=== PATIENT | male | born 1980 | race Caucasian/White ===

== ENCOUNTER 2019-11-06 17:02 | Emergency (ER) | payer OTHER, SELFPAY ==
[2019-11-06 17:07] VITALS: BP 125/82; PULSE 75; RESP 16; TEMP 36.6; O2SAT 98
--- NOTE | 2019-11-06 17:45 | ED.GENADULT ---
HPI - General Adult General Chief complaint: Upper Respiratory Infection Stated complaint: COUGH Time Seen by Provider: 11/06/19 17:45 Source: patient Mode of arrival: ambulatory Limitations: no limitations History of Present Illness HPI narrative: 39-year-old male patient presents to the [facility] with complaints of a cough for the past 3 weeks. Patient states that he went to [facility] on 17 October and at that time he had cold symptoms as well as a cough that lasted for a week they told him it was viral and that it can last a little while and just recommended [id number] symptomatic relief. Patient states he has tried Ricola, Delson for his symptoms and continues to have coughing. Patient states most of his other symptoms have resolved and denies any fevers. Patient states he does have a little bit of shortness of breath. Patient states he has been coughing so hard that he has actually busted blood vessels in his eye and has fainted a couple of times because cannot catch his breath. Related Data Home Medications Medication Instructions Recorded Confirmed cetirizine [Zyrtec] 10 mg PO DAILY 11/06/19 11/06/19 omeprazole 10 mg PO DAILY 11/06/19 11/06/19 Allergies Allergy/AdvReac Type Severity Reaction Status Date / Time NKDA Allergy Unknown Uncoded 02/18/03 15:24 PEACHES Allergy Unknown Uncoded 02/18/03 15:24 Review of Systems Review of Systems: Narrative: CONSTITUTIONAL: Denies fever, chills, or sweats. EYES: Denies visual changes, redness, or discharge. ENT: Denies rhinorrhea, congestion, sore throat, or otalgia. CARDIOVASCULAR: Denies chest pain, palpitations, or edema. RESPIRATORY: Positive cough with dyspnea. GASTROINTESTINAL: Denies abdominal pain, nausea, vomiting, or diarrhea. GENITOURINARY: Denies dysuria or hematuria. SKIN: Denies rash or itching. MUSCULOSKELETAL: Denies back pain, joint pain, or myalgia. NEUROLOGIC: Denies headache, numbness, or weakness. PSYCHIATRIC: Denies anxiety or depression. PMFSH Comments At the time of my signature I agree with nursing past medical history, surgical, social, and family history. There is no relevant family history pertinent to the presenting complaint. Exam Narrative: Exam Narrative: GENERAL: Well-appearing, well-nourished, and in no acute distress. HEAD: Normocephalic, atraumatic. EYES: PERRLA and EOMI. ENT: Nares clear, no rhinorrhea or epistaxis. Mucous membranes moist. Bilateral TMs are clear with no erythema or foreign bodies in the canal. Posterior pharynx no erythema, tonsillar margin, exudates or lesions present. NECK: Supple. No lymphadenopathy CHEST: Patient has slight wheezing noted to expiratory bilateral lower lobes. No respiratory distress. Patient is coughing during exam. Patient able talk in clear complete sentences. No tripoding noted at this time. HEART: Regular rate and rhythm. No murmur heard. Normal peripheral pulses. ABDOMEN: Soft, nontender, nondistended, normal active bowel sounds. EXTREMITIES: Normal range of motion. No edema. SKIN: Warm, dry, no rash. NEURO: No focal deficits. Alert and oriented x3. Course Reevaluation(s) Reevaluation #1: Reevaluated patient after his DuoNeb was completed. Patient's lung sounds are clear now to bilateral upper lower lobes. Patient does have less coughing. Discussed with patient that I think this is most likely a bronchitis due to the virus that he has been fighting off. Discussed with patient I will discharge him home with an albuterol inhaler, oral steroid and I want him to continue taking his Zyrtec daily. Discussed with patient that if he continues to have worsening cough, chest pain, shortness of breath or he continues to pass out with coughing and he needs to go the ER for further testing. Patient verbalized understanding denies any other questions or concerns at this time. Date: 11/06/19 Time: 18:36 Vital Signs Vital signs: Vital Signs Temperature 36.6 C 11/06/19 17:07 Pulse
[2019-11-06] MEDS: ALBUTEROL SULFATE NEB 2.5 MG/3 ML INH INHALATION (17:56)
[2019-11-06] MEDS: IPRATROPIUM BR 0.02% INH SOLN 0.5 MG/2.5 ML VIAL INHALATION (17:57)
[2019-11-06 18:50] VITALS: PULSE 80; RESP 20; O2SAT 98
== END 2019-11-06 18:52 | disposition home or self-care (01) ==
PROVIDERS: Emergency Provider Nurse Practitioner Family; PCP Internal Medicine
DX: J20.9 Acute bronchitis, unspecified (principal)
CPT/HCPCS: 94640; 99213; G0463

== ENCOUNTER 2019-11-08 09:25 | Emergency (ER) | payer OTHER, SELFPAY ==
[2019-11-08 09:32] VITALS: BP 126/86; PULSE 78; RESP 16; TEMP 36.2; O2SAT 99
--- NOTE | 2019-11-08 10:00 | ED.GENADULT ---
HPI - General Adult General Chief complaint: Upper Respiratory Infection Stated complaint: cold flu History of Present Illness HPI narrative: This is a 39-year-old male that comes in complaining coughing so much that he passes out. Patient states he was here on the because he was passing out from coughing and lack of oxygen was diagnosed with bronchitis giving steroids and an inhaler with Zyrtec. Patient states the following day he did not pass out since then he is passed out at work and continues to pass out at home he passed out today and it was different and that is why he is coming today states that he still has some shortness of breath. Patient states as far as he knows he has not hit his head his but he hit his arm and shoulder because it hurts. Related Data Home Medications Medication Instructions Recorded Confirmed cetirizine [Zyrtec] 10 mg PO DAILY 11/06/19 11/06/19 omeprazole 10 mg PO DAILY 11/06/19 11/06/19 Allergies Allergy/AdvReac Type Severity Reaction Status Date / Time NKDA Allergy Unknown Uncoded 02/18/03 15:24 PEACHES Allergy Unknown Uncoded 02/18/03 15:24 Review of Systems Review of Systems: Narrative: CONSTITUTIONAL: Denies fever, chills, or sweats. syncope EYES: Denies visual changes, redness, or discharge. ENT: Denies rhinorrhea, congestion, sore throat, or otalgia. CARDIOVASCULAR:Denies chest pain, palpitations, or edema. RESPIRATORY: positive cough or dyspnea. GASTROINTESTINAL: Denies abdominal pain, nausea, vomiting, or diarrhea. GENITOURINARY: Denies dysuria or hematuria. SKIN:[Denies rash or itching. MUSCULOSKELETAL:Denies back pain, joint pain, or myalgia. NEUROLOGIC: Denies headache, numbness, or weakness. PSYCHIATRIC:Denies anxiety or depression Exam Narrative: Exam Narrative: GENERAL:Well-appearing, well-nourished, and in no acute distress.syncope HEAD:Normocephalic, atraumatic. EYES: PERRLA and EOMI. subconjunctival hemorrhage ENT: Nares clear, no rhinorrhea or epistaxis. Mucous membranes moist. NECK: Supple. CHEST: Clear to auscultation. No respiratory distress. HEART: Regular rate and rhythm. No murmur heard. Normal peripheral pulses. ABDOMEN: Soft, nontender, nondistended, normal active bowel sounds. EXTREMITIES: Normal range of motion. No edema. SKIN: Warm, dry, no rash. NEURO: No focal deficits. Alert and oriented x3. Course Vital Signs Vital signs: Vital Signs Temperature 97.1 F L 11/08/19 09:32 Pulse Rate 78 11/08/19 09:32 Respiratory Rate 16 11/08/19 09:32 Blood Pressure 126/86 11/08/19 09:32 Pulse Oximetry 99 11/08/19 09:32 Temperature 97.1 F L 11/08/19 09:32 Pulse Rate 78 11/08/19 09:32 Respiratory Rate 16 11/08/19 09:32 Blood Pressure 126/86 11/08/19 09:32 Pulse Oximetry 99 11/08/19 09:32 Medical Decision Making Vital Signs Vital Signs: Vital Signs Temperature 97.1 F L 11/08/19 09:32 Pulse Rate 78 11/08/19 09:32 Respiratory Rate 16 11/08/19 09:32 Blood Pressure 126/86 11/08/19 09:32 Pulse Oximetry 99 11/08/19 09:32 Temperature 97.1 F L 11/08/19 09:32 Pulse Rate 78 11/08/19 09:32 Respiratory Rate 16 11/08/19 09:32 Blood Pressure 126/86 11/08/19 09:32 Pulse Oximetry 99 11/08/19 09:32 Discharge Plan Discharge Clinical Impression: Upper respiratory infection, Syncope and collapse Patient Disposition: Acute Care Hospital Condition: Stable Prescriptions: No Action omeprazole 10 mg Capsule,Delayed Release(Dr/Ec) 10 mg PO DAILY RF: 0 Zyrtec 10 mg Capsule 10 mg PO DAILY RF: 0 prednisone 20 mg tablet 40 mg PO DAILY 5 Days Qty: 10 RF: 0 albuterol sulfate [Ventolin HFA] 90 mcg/actuation HFA aerosol inhaler 2 puff INHALATION .Q4 hours PRN (Reason: cough) Qty: 18 RF: 0 Follow-up/Referrals: Fermin,MD Oneal [Primary Care Provider] - Time of Disposition: 10:39 Discharge Date/Time: 11/08/19 10:39
--- NOTE | 2019-11-08 10:38 | PC.NURSE ---
1025- [employer] talking to Dr Nguyen at [facility].
== END 2019-11-08 10:39 | disposition short-term general hospital (02) ==
PROVIDERS: Emergency Provider Nurse Practitioner Family; PCP Internal Medicine
DX: J06.9 Acute upper respiratory infection, unspecified (principal); R55 Syncope and collapse
CPT/HCPCS: 99213; G0463

== ENCOUNTER 2019-11-08 11:25 | Emergency (ER) | payer OTHER, SELFPAY ==
--- NOTE | ~2019-11-08 | XR_ITS ---
EXAMINATION: XR chest 2V EXAM DATE: 11/08/2019 12:56 INDICATION: Cough for 3 weeks. TECHNIQUE: Frontal and lateral projections of the chest obtained and reviewed. Comparison is made to prior examination from 11/28/2004. FINDINGS: The lungs are clear. There are no pleural effusions. The cardiomediastinal silhouette is within normal limits. There is no pneumothorax suspected. The bones and soft tissues are unremarkab le. IMPRESSION: Normal chest x-ray exam. Reviewed, dictated and finalized at location B. IMPRESSION: Normal chest x-ray exam.
[2019-11-08 11:30] VITALS: BP 145/88; PULSE 72; RESP 18; TEMP 36.2; O2SAT 99
--- NOTE | 2019-11-08 11:35 | ECG_ITS ---
Measurements Intervals [place] Rate: 67 P: 25 MI: 179 QRS: -12 QRSD: 108 T: 8 QT: 386 QTc: 408 Interpretive Statements SINUS RHYTHM INCOMPLETE RIGHT BUNDLE BRANCH BLOCK VOLTAGE CRITERIA FOR LVH DELAYED PRECORDIAL R/S TRANSITION BORDERLINE T WAVE ABNORMALITY- INFERIOR LEADS BORDERLINE ECG Electronically Signed On 11-08-2019 11:49:19 CDT by Tyler Guaman D.O.
[2019-11-08 11:51] LABS: Basophils Percent Auto 0.5 % (0.2-1.2); Eosinophils Percent Auto 0.3 % (0-4.4); Hematocrit 49.6 % (42.0-52.0); Hemoglobin 16.5 g/dL (14.0-18.0); Immature Granulocyte Absolute 0.03 K/mm3 (0.00-0.031); Immature Granulocyte Percent A 0.4 % (0-0.5); Lymphocytes Absolute Auto 1.65 K/mm3 (0.9-3.2); Lymphocytes Percent Auto 22.4 % (18.3-44.2); Mean Corpuscular HGB Conc 33.3 g/dl (32-36); Mean Corpuscular Hemoglobin 28.3 pg (26-34); Mean Corpuscular Volume 84.9 fl (80-100); Mean Platelet Volume 10.7 fl (7.4-10.4); Monocytes Absolute Auto 0.2 K/mm3 (0.1-0.6); Monocytes Percent Auto 2.6 % (2.6-8.5); Neutrophils Absolute Auto 5.5 K/mm3 (1.3-6.7); Neutrophils Percent Auto 73.8 % (45.5-73.1); Platelet Count Result 255 k/mm3 (150-375); Red Blood Count 5.84 M/mm3 (4.6-6.20); Red Cell Distribution Width 12.5 % (11.5-14.5); White Blood Count 7.4 K/mm3 (4.5-10.0)
[2019-11-08 12:03] LABS: Blood Urea Nitrogen 11 mg/dL (9-20); Calcium 9.3 mg/dL (8.4-10.2); Carbon Dioxide 27 mmol/L (22-30); Chloride 104 mmol/L (98-107); Estimated CRCL calculation 130 ml/min; Estimated Glomerular Filt Rate > 60; Glucose 146 mg/dL (75-110); Sodium 141 mmol/L (137-145)
--- NOTE | 2019-11-08 12:19 | ED.SYNCOPE ---
HPI - Syncope General Chief Complaint: Syncope Stated Complaint: syncope Time Seen by Provider: 11/08/19 11:58 Source: patient Mode of arrival: ambulatory Limitations: no limitations History of Present Illness HPI narrative: A 39 y/o male pt presents to the ED, from a local urgent care, with c/o coughing followed by syncope x 5 days. Pt states he has been having coughing episodes and when he sits down during them he passes out. He notes feeling SOB and states that his coughing episodes are becoming more frequent. His last coughing episode followed by a syncopal episode occurred this morning at 700AM. He states that his Sx are worse in the morning and at night, but notes having a coughing and syncopal episode yesterday at work around 300PM. Pt reports pain upon inspiration x 1 week ago, that has now subsided, trouble inhaling and exhaling, and congestion that is chronic, but denies any injuries from syncopal episodes, pain or swelling in legs, rhinorrhea, fever, or N/V/D. He denies any recent travel. Pt reports taking Ricola when working, Zyrtec daily, and states he was recently prescribed Prednisone x 5 doses and Albuterol every 4 hours, with little relief of his Sx. He denies having any current SOB in the ED. complaint: loss of consciousness Onset (ago): day(s) (5) Prodromal symptoms: other (coughing episode) Injuries sustained associated with event: none Current symptoms: shortness of breath and other (cough, chronic congestion) Treatments prior to arrival: medication (Prednisone, Zyrtec, Ricola, Albuterol) Related Data Home Medications Medication Instructions Recorded Confirmed cetirizine [Zyrtec] 10 mg PO DAILY 11/06/19 11/06/19 omeprazole 10 mg PO DAILY 11/06/19 11/06/19 Allergies Allergy/AdvReac Type Severity Reaction Status Date / Time PEACHES AdvReac Unknown Unknown Uncoded 11/08/19 11:34 Review of Systems Review of Systems: All systems reviewed & are unremarkable except as noted in HPI and below Constitutional: Constitutional: Denies fever(s) ENT: Denies other (rhinorrhea) Cardiovascular: Cardiovascular: Denies leg edema and Denies other (leg pain) Respiratory: Respiratory: Reports chest congestion (chronic), Reports cough, Reports pain on inspiration (subsided) and Reports dyspnea Gastrointestinal: Gastrointestinal: Denies diarrhea, Denies nausea and Denies vomiting Neurologic: Reports syncope (after coughing episode) [facility] Past Medical History Medical History (Updated 11/08/19 @ 15:50 by Kunal Paris MD) History of gastroesophageal reflux (GERD) Surgical History Surgical History (Updated 11/08/19 @ 14:30 by Star SimentalActivIdentity) H/O hernia repair History of sinus surgery Social History Social History (Updated 11/08/19 @ 14:31 by Star SimentalActivIdentity) Smoking status: Never smoker Gender identity (if verbalized by the patient): Male Exam Narrative: Exam Narrative: GENERAL: Well-appearing, well-nourished, and in no acute distress. HEAD: Normocephalic, atraumatic. Eyes: Jomar, EOMI, subconjunctival hemorrhage right medial eye ENT: Mucous membranes moist. No pharyngeal erythema or tonsillar exudate, uvula midline and nonedematous. CHEST: Clear to auscultation. No respiratory distress. HEART: Regular rate and rhythm. Normal peripheral pulses. ABDOMEN: Soft, nontender, nondistended. EXTREMITIES: Normal range of motion. No edema. NEURO: Alert and oriented x3. Course Course Emergency Course: Suspect vasovagal syncope related to increased para pressure from frequent coughing and not breathing. Seems to occur mainly in the evenings and mornings when patient is laying down so it may be related to postnasal drip. Will prescribe Mucinex D to help prevent this. Vital Signs Vital signs: Vital Signs Temperature 97.2 F L 11/08/19 11:30 Pulse Rate 72 11/08/19 11:30 Respiratory Rate 18 11/08/19 11:30 Blood Pressure 145/88 H 11/08/19 11:30 Pulse Oximetry 99 11/08/19 11:3
[2019-11-08 12:30] VITALS: BP 139/87; PULSE 70
[2019-11-08 12:32] VITALS: BP 140/88; PULSE 73
[2019-11-08 12:34] VITALS: BP 133/93; PULSE 75
[2019-11-08 16:02] VITALS: BP 136/91; PULSE 107; RESP 16; O2SAT 94
== END 2019-11-08 16:02 | disposition home or self-care (01) ==
PROVIDERS: General Practice; Emergency Provider Emergency Medicine; PCP Internal Medicine
DX: R05 Cough (principal); R55 Syncope and collapse; K21.9 Gastro-esophageal reflux disease without esophagitis; I45.10 Unspecified right bundle-branch block; R94.31 Abnormal electrocardiogram [ECG] [EKG]
CPT/HCPCS: 36415; 71046; 80048; 85025; 93005; 99284

== ENCOUNTER → 2021-03-05 08:16 | Outpatient (CLI) | payer OTHER, SELFPAY ==
[2021-03-05 17:20] LABS: SARS-CoV-2 RNA PCR Positive
== END ==
PROVIDERS: PCP Physician Assistant; Visit Provider Physician Assistant
DX: U07.1 COVID-19 (principal)
CPT/HCPCS: C9803; U0003; U0005

== ENCOUNTER → 2021-09-04 10:58 | Outpatient (CLI) | payer OTHER, SELFPAY ==
[2021-09-05 16:24] LABS: SARS-CoV-2 RNA PCR Negative
== END ==
PROVIDERS: PCP Physician Assistant; Visit Provider Physician Assistant
DX: R68.89 Other general symptoms and signs (principal); Z20.822 Contact with and (suspected) exposure to COVID-19
CPT/HCPCS: C9803; U0003; U0005

== ENCOUNTER → 2021-12-21 11:44 | Outpatient (CLI) | payer OTHER, SELFPAY ==
--- NOTE | ~2021-12-21 | US_ITS ---
EXAMINATION: US right upper quadrant DATE: 12/21/2021 12:03 INDICATION: Elevated liver enzymes TECHNIQUE: Multiple grayscale and Doppler ultrasound images of the abdomen were obtained. COMPARISON: CT, 02/12/2018 FINDINGS: The head and body of the pancreas are normal. The pancreatic tail is obscured by bowel gas. The liver demonstrates increased echogenicity, heterogenous echotexture, and decreased through trans mission. No surface nodularity. Normal hepatopetal flow in the main portal vein. The gallbladder is n ormal with no abnormal wall thickening, pericholecystic fluid or stones. The normal common bile duct measures 5 mm. There was no sonographic Delgadillo sign. IMPRESSION: 1. Diffuse hepatic steatosis. Reviewed, dictated and finalized at location F.
== END ==
PROVIDERS: PCP Internal Medicine; Visit Provider Physician Assistant
DX: R74.01 Elevation of levels of liver transaminase levels (principal); K76.0 Fatty (change of) liver, not elsewhere classified
CPT/HCPCS: 76705

== ENCOUNTER 2022-01-27 07:36 | Outpatient (CLI) | payer OTHER, SELFPAY ==
--- NOTE | 2022-02-09 22:40 | WPDHOMESLEEP ---
Sleep Study - Home Unattended Date of Study: 01/27/22 Ordering Provider: Aminata Holder, PAPorsha Interpreting Provider: Antonieta Stanley MD [place] Sleep Study Type: Watch PAT Height: 1.78 m Weight: 106.594 kg Body Mass Index: 33.7 Neck Circumference (inches): 17 [place]: 10 Reason for Sleep Study New atrial fibrillation, constant snoring Sleep History Ole Patel is a 41-year-old man who was recently diagnosed with atrial fibrillation. He has excessive daytime sleepiness. He does not awaken from sleep feeling short of breath. On occasion he awakens with heartburn, belching or coughing. He constantly snores and it is frequently loud enough that others complain about it. He occasionally has trouble sleeping with a cold. He does not wake up gasping for breath at night. He occasionally has breathing problems at night observed by others. He occasionally sweats excessively at night. He rarely notices his heart pounding or beating irregularly at night. He frequently falls asleep during the day, rarely falls asleep involuntarily however he does not fall asleep while driving. He does not have loss of muscle tone with strong emotion. He rarely has daytime difficulties due to excessive sleepiness. He does not feel paralyzed on waking or falling asleep. He does not have vivid dreamlike scenes upon awakening or falling asleep. He does not feel afraid to go to sleep. He does not have nightmares. He rarely remembers his dreams. He occasionally has racing thoughts. He does not feel sad or depressed. He frequently has anxiety. He occasionally has muscular tension. He rarely notices parts of his body jerking. He does not kick at night. He does not have crawling or aching feelings in his legs. He does not have any kind of leg pain at night. He rarely has morning jaw pain. He does not grind his teeth during sleep. He rarely is bothered by pain during the day. He is not awakened by pain during the night. He occasionally wakes up feeling stiff in the morning with sore achy muscles. He rarely wakes up with pain in the neck and spine. He has fatigue and he takes antacids regularly. Normal bedtime is between 11:00 p.m. and 12 midnight taking 5-10 minutes to fall asleep, typically waking 1-2 times at night to use the bathroom. Occasionally he has difficulty returning to sleep. He wakes between 6 and 7:00 a.m.. His weekend schedule is the same. He estimates getting between 7 and 8 hours of sleep at night. He takes naps in the afternoon or evening. A short nap is not refreshing. Most of the time he feels good on waking. He feels better in the morning compared to other times of day. Habits: Never smoked tobacco. Caffeine 6-7 diet Pepsi's a day. No alcohol or recreational drugs. [facility] Past Medical History Medical History (Updated 02/09/22 @ 22:57 by Antonieta Stanley MD) Allergies Atrial fibrillation Fatty liver History of gastroesophageal reflux (GERD) Hyperlipidemia Surgical History Surgical History H/O hernia repair History of sinus surgery Family History Family History (Updated 02/09/22 @ 22:50 by Antonieta Stanley MD) Mother Breast cancer Cirrhosis Social History Social History Smoking status: Never smoker Gender identity (if verbalized by the patient): Male Medications Home Medications Medication Instructions Recorded Confirmed Type albuterol sulfate 90 mcg/actuation 2 puff inhalation .Q4 hours PRN 11/06/19 Rx aerosol inhaler (Ventolin HFA) cough #18 grams cetirizine 10 mg capsule (Zyrtec) 10 mg PO DAILY 11/06/19 11/06/19 History omeprazole 10 mg capsule,delayed 10 mg PO DAILY 11/06/19 11/06/19 History release prednisone 20 mg tablet 40 mg PO DAILY cough 5 days #10 11/06/19 Rx tabs pseudoephedrine-guaifenesin ER 60 1 tablet PO Q12H PRN cold symptoms 11/08/19 Rx mg-600 mg
[2022-02-09 23:05] VITALS: BMI 33.7
== END 2022-02-09 11:00 | disposition home or self-care (01) ==
LOC: ANHCSM 07:45
PROVIDERS: PCP Internal Medicine; Visit Provider Physician Assistant
DX: G47.33 Obstructive sleep apnea (adult) (pediatric) (principal)
CPT/HCPCS: 95800

== ENCOUNTER 2022-06-01 07:54 | Outpatient (CLI) | payer OTHER, SELFPAY ==
--- NOTE | 2022-06-26 12:59 | WPDSLEEPSTUD ---
Sleep Study Date of Study: 06/01/22 Ordering Provider: Aminata Holder, PORTIA Interpreting Physician: Antonieta Stanley MD Sleep Study Type: CPAP Titration Height: 1.78 m Weight: 108.862 kg Body Mass Index: 34.4 Neck Circumference (inches): 19.5 [place]: 10 Reason for Sleep Study * 01/27/2022 - Home Sleep Test with moderate obstructive sleep apnea, AHI 15.3, worse in supine REM AHI 42.3, desaturation to 79% He presents for a CPAP titration Sleep History Ole Patel? is a 42-year-old man who was diagnosed with atrial fibrillation before his February 08, 2022 home sleep test.? He has excessive daytime sleepiness.? He does not awaken from sleep feeling short of breath.? On occasion he awakens with heartburn, belching or coughing.? He constantly snores and it is frequently loud enough that others complain about it.? He occasionally has trouble sleeping with a cold.? He does not wake up gasping for breath at night.? He occasionally has breathing problems at night observed by others.? He occasionally sweats excessively at night.? He rarely notices his heart pounding or beating irregularly at night.? He frequently falls asleep during the day, rarely falls asleep involuntarily however he does not fall asleep while driving.? He does not have loss of muscle tone with strong emotion.? He rarely has daytime difficulties due to excessive sleepiness.? He does not feel paralyzed on waking or falling asleep.? He does not have vivid dreamlike scenes upon awakening or falling asleep.? He does not feel afraid to go to sleep.? He does not have nightmares.? He rarely remembers his dreams.? He occasionally has racing thoughts.? He does not feel sad or depressed.? He frequently has anxiety.? He occasionally has muscular tension.? He rarely notices parts of his body jerking.? He does not kick at night.? He does not have crawling or aching feelings in his legs.? He does not have any kind of leg pain at night.? He rarely has morning jaw pain.? He does not grind his teeth during sleep.? He rarely is bothered by pain during the day.? He is not awakened by pain during the night.? He occasionally wakes up feeling stiff in the morning with sore achy muscles.? He rarely wakes up with pain in the neck and spine.? He has fatigue and he takes antacids regularly. Normal bedtime is between 11:00 p.m. and 12 midnight taking 5-10 minutes to fall asleep, typically waking 1-2 times at night to use the bathroom.? Occasionally he has difficulty returning to sleep.? He wakes between 6 and 7:00 a.m..? His weekend schedule is the same.? He estimates getting between 7 and 8 hours of sleep at night.? He takes naps in the afternoon or evening.? A short nap is not refreshing.? Most of the time he feels good on waking.? He feels better in the morning compared to other times of day. Habits:? Never smoked tobacco.? Caffeine 6-7 diet Pepsi's a day.? No alcohol or recreational drugs. [facility] Past Medical History Medical History (Updated 06/26/22 @ 13:03 by Antonieta Stanley MD) Allergies Atrial fibrillation Fatty liver History of gastroesophageal reflux (GERD) Hyperlipidemia Obstructive sleep apnea Surgical History Surgical History H/O hernia repair History of sinus surgery Family History Family History (Updated 02/09/22 @ 22:50 by Antonieta Stanley MD) Mother Breast cancer Cirrhosis Social History Social History Smoking status: Never smoker Gender identity (if verbalized by the patient): Male Medications Home Medications Medication Instructions Recorded Confirmed Type albuterol sulfate 90 mcg/actuation 2 puff inhalation .Q4 hours PRN 11/06/19 Rx aerosol inhaler (Ventolin HFA) cough #18 grams cetirizine 10 mg capsule (Zyrtec) 10 mg PO DAILY 11/06/19 11/06/19 History omeprazole 10 mg capsule,delayed 10 mg PO DAILY 11/06/19 11/06/19 History release predniso
[2022-06-26 13:17] VITALS: BMI 34.4
== END 2022-06-02 06:11 | disposition home or self-care (01) ==
PROVIDERS: PCP Internal Medicine; Visit Provider Physician Assistant
DX: G47.33 Obstructive sleep apnea (adult) (pediatric) (principal); Z68.34 Body mass index [BMI] 34.0-34.9, adult
CPT/HCPCS: 95811

== ENCOUNTER 2022-09-02 09:13 | Outpatient (CLI) | payer OTHER, SELFPAY ==
--- NOTE | ~2022-09-02 | MM_ITS ---
EXAMINATION: MM diagnostic desmond LT w livan HISTORY: Subareolar lump of the left breast TECHNIQUE: Craniocaudal, mediolateral, and mediolateral oblique 3-D tomosynthesis images of the left breast were performed and synthetic 2-D images were generated. Mediolateral oblique 3-D tomosynthesis images of the right breast were obtained for comparison and synthetic 2-D images were generated. CAD analysis was submitted and interpreted. COMPARISON: None BREAST PARENCHYMAL COMPOSITION: The breasts are almost entirely fatty. FINDINGS: No suspicious mass, calcification, or architectural distortion are identified to suggest ma lignancy. No mammographic correlate is identified for the reported palpable abnormality of the left b reast. IMPRESSION: 1. No specific mammographic correlate is identified for the reported palpable abnormality of concern. Further evaluation at this time should be based on clinical assessment. Continued follow-up physical examination is recommended. BI-RADS Category 1: Negative Reviewed, dictated and finalized at location A. SMAN/OWNER IMPRESSION: 1. No specific mammographic correlate is identified for the reported palpable a bnormality of concern. Further evaluation at this time should be based on clini geronimo assessment. Continued follow-up physical examination is recommended. BI-RADS Category 1: Negative
== END 2022-09-02 09:14 | disposition home or self-care (01) ==
PROVIDERS: PCP Physician Assistant; Visit Provider Physician Assistant
DX: R92.8 Other abnormal and inconclusive findings on diagnostic imaging of breast (principal)
CPT/HCPCS: 77061; 77065; G0279

== ENCOUNTER 2023-12-13 12:00 | Outpatient (CLI) | payer OTHER, SELFPAY ==
--- NOTE | ~2023-12-13 | XR_ITS ---
EXAMINATION: XR chest 2V Exam Date/Time: 12/13/2023 12:05 CDT HISTORY: Screening procedure Comparison: 11/08/2019, report only. RESULT: Lines, tubes, and devices: None. Lungs and pleura: Clear. Cardiomediastinal silhouette: Unremarkable. Other: No acute osseous or upper abdominal finding. IMPRESSION: No acute cardiopulmonary process. Reviewed, dictated and finalized at location K.
== END 2023-12-13 12:01 ==
LOC: MICIMG 12:01
PROVIDERS: PCP Physician Assistant; Visit Provider Physician Assistant
DX: Z13.9 Encounter for screening, unspecified (principal)
CPT/HCPCS: 71046

== ENCOUNTER 2024-07-20 07:38 | Emergency (ER) | payer OTHER, SELFPAY ==
[2024-07-20 07:43] VITALS: BP 149/82; PULSE 89; RESP 16; TEMP 36.4; O2SAT 98
--- NOTE | 2024-07-20 07:59 | ED_ITS ---
HPI - Eye Problem General Chief complaint: Eye Problems Stated complaint: foreign body right eye Time Seen by Provider: 07/20/24 07:43 History of Present Illness HPI Narrative: Patient is a 44-year-old male who presents ER with foreign body sensation to the right eye. Use in the ER mulching leaves yesterday he started to have some irritation right eye. He took out his contacts to sleep. When he woke up this morning he is still having irritation in the eye. No flashers or floaters. He has foreign body sensation. No photophobia. No change in vision. He is wearing his glasses visual acuities are 20/30 in each eye. Related Data Home Medications Medication Instructions Recorded Confirmed cetirizine 10 mg capsule (Zyrtec) 10 mg PO DAILY 11/06/19 11/06/19 omeprazole 10 mg capsule,delayed 10 mg PO DAILY 11/06/19 11/06/19 release Allergies Allergy/AdvReac Type Severity Reaction Status Date / Time PEACHES AdvReac Unknown Unknown Uncoded 07/20/24 07:45 Review of Systems Eyes: Eyes: Denies change in vision and Denies photophobia Comments: FB sensation PMFSH Past Medical History Medical History (Updated 07/20/24 @ 08:01 by Kunal Paris MD) Allergies Atrial fibrillation Fatty liver History of gastroesophageal reflux (GERD) Hyperlipidemia Obstructive sleep apnea Surgical History Surgical History H/O hernia repair History of sinus surgery Family History Family History (Updated 02/09/22 @ 22:50 by Antonieta Stanley MD) Mother Breast cancer Cirrhosis Social History Social History Smoking status: Never smoker Gender identity (if verbalized by the patient): Male Exam Narrative: GENERAL: Well-appearing, well-nourished, and in no acute distress. HEAD: Normocephalic, atraumatic. EYES: PERRLA and EOMI. Right eye viewed with magnification as well as floor since standing. No corneal abrasion. Eyelid eversion performed and small f oreign body retrieved from the upper eyelid with cotton swab. NEURO: Alert and oriented x3. PSYCH: Normal mood and affect. Course Course Emergency Course: Foreign body retrieved. Discharge home. Return precautions given. Recommend not wearing contacts for 3 days. Vital Signs Vital signs: Vital Signs Temperature 97.6 F 07/20/24 07:43 Pulse Rate 89 07/20/24 07:43 Respiratory Rate 16 07/20/24 07:43 Blood Pressure 149/82 H 07/20/24 07:43 Pulse Oximetry 98 07/20/24 07:43 Oxygen Delivery Room Air 07/20/24 07:43 Temperature 97.6 F 07/20/24 07:43 Pulse Rate 89 07/20/24 07:43 Respiratory Rate 16 07/20/24 07:43 Blood Pressure 149/82 H 07/20/24 07:43 Pulse Oximetry 98 07/20/24 07:43 Oxygen Delivery Room Air 07/20/24 07:43 Discharge Plan Discharge Clinical Impression: Eye foreign body Patient Disposition: Home, Self-Care Condition: Stable Instructions: Eye Foreign Body (ED) Additional Instructions: You had some debris under your right eye lid. Do not wear your contacts for the next 3 days. Return to the ER if you have increased eye pain, new eye discharge, or you cannot see. Prescriptions: No Action omeprazole 10 mg Capsule,Delayed Release(Dr/Ec) 10 mg PO DAILY Zyrtec 10 mg Capsule 10 mg PO DAILY prednisone 20 mg tablet 40 mg PO DAILY 5 Days Qty: 10 0RF albuterol sulfate [Ventolin HFA] 90 mcg/actuation HFA aerosol inhaler 2 puff INHALATION .Q4 hours PRN (Reason: cough) Qty: 18 0RF pseudoephedrine-guaifenesin [Mucinex D] 60-600 mg tablet extended release 12 hr 1 tablet PO Q12H PRN (Reason: cold symptoms) Qty: 14 0RF Follow-up/Referrals: Glory,PORTIA Coates [Primary Care Provider] - 1 Week
== END 2024-07-20 08:18 | disposition home or self-care (01) ==
PROVIDERS: Emergency Provider Emergency Medicine; PCP Physician Assistant
DX: T15.11XA Foreign body in conjunctival sac, right eye, initial encounter (principal); I48.91 Unspecified atrial fibrillation; E78.5 Hyperlipidemia, unspecified; K21.9 Gastro-esophageal reflux disease without esophagitis; G47.33 Obstructive sleep apnea (adult) (pediatric); W44.8XXA Other foreign body entering into or through a natural orifice, initial encounter
CPT/HCPCS: 65205; 99283; A9270

== ENCOUNTER 2025-01-09 00:17 | Day surgery (SDC) | payer OTHER, SELFPAY ==
[2024-12-31 15:03] VITALS: BMI 34.4
--- OUTSIDE RECORDS SUMMARY | 2025-01-09 00:20 | XMS_ITS | Data Portability ---
Author Organization [place] - [facility], Main Office Address [address] [place] [address] Assessment Encounter Date Assessment Date Assessment LastModified by Organization Details LastModified Time 06/27/2023 06/27/2023 cyst midback, symptomatic. Options discussed with patient. We will schedule for excision under sedation. Risks and benefits were discussed risks include bleeding infection numbness Not available 06/27/2023 11:45:23 07/18/2023 07/18/2023 status post excision cyst on back. Doing well. We will remove sutures. Follow-up p.r.n. Not available 07/27/2023 13:32:09 Plan of Treatment Reminders Order Date Submit Date Provider Last Modified By Organization Details Last Modified Time Details Appointments None recorded. Lab PSA, serum or plasma 2022 024 [email or web address] Not available 4 10:18:37 HbA1c (hemoglobin A1c), blood 2022 024 [email or web address] Not available 4 10:18:37 CBC w/ auto diff 2022 024 [email or web address] Not available 4 10:18:37 TSH + free T4, serum 2022 024 [email or web address] Not available 4 10:18:37 CMP, serum or plasma 2022 024 [email or web address] Not available 4 10:18:37 lipid panel, serum 2022 024 [email or web address] Not available 4 10:18:37 CBC w/ auto diff 2022 023 FROY [facility], [address] [facility] [address], [place], [address], 3 10:26:15 HbA1c (hemoglobin A1c), blood 2022 023 [email or web address] [facility], [address] [facility] [address], [place], [address], 3 10:48:18 lipid panel, serum 2022 023 [email or web address] [facility], [address] [facility] [address], [place], [address], 3 10:48:10 CMP, serum or plasma 2022 023 [email or web address] [facility], [address] [facility] [address], [place], [address], 3 10:48:00 Referral general surgeon referral 2022 023 [email or web address] [id number] Prasanna Hopkins MD, [address] [facility] [address], [address], 15:47:10 Procedures None recorded. Surgeries None recorded. Imaging None recorded. Medication Orders rosuvastati n 10 mg tablet 2022 023 [employer] [facility], [address] [place] [address], [address], 12:21:59 Patient TargetsNo targets recorded. Patient InstructionsNo instructions recorded. Reason for Referral General Surgeon Referral for Sebaceous cyst of skin 2cm posterior thorax midline cyst. not infected. Referring Physician: Aminata Holder, Internal Medicine, Encounter Date: 06/12/2023 Results Created Date Observation Date Name Description Value Unit Range Abnormal Flag Note LastModifiedBy Organization Detail LastModifiedTime 09/05/19 23 09/02/2022 MAMMO , diagn ostic , digit al, unila teral No observ ation record ed. [email or web address] [facility] [address], [place], [address], 01/22/2023 15:42:00 09/08/19 23 06/01/2022 home sleep study No observ ation record ed. [id number] [facility] ([facility]) [address] [facility] [address], [place], [address], 10/26/2022 14:51:18 Result Notes None recorded. Problems Name Problem SNOMED Code Status Onset Date Resolution Date Notes Provider Name and Address Organization Details Recorded Time Apnea 0405222 Active 2021 Not Available [facility] 3 14:47:37 Mass of left breast 3997471016856 9103 Active 2022 Not Available [facility] 3 14:47:37 Daytime somnolence 317577065185 Active 2021 Not Available [facility] 3 14:47:37 Diabetes mellitus screening Active 2021 Not Available [facility] 3 14:47:37 Steatotic liver disease 831994024 Active 2021 Not Available [facility] 3 14:47:37 Gastroesop hageal reflux disease 341827141 Active 2020 Not Available [facility] 3 14:47:37 Pure hyperchole sterolemia 514085748 Active Not Available [facility] 3 14:47:37 Paroxysmal atrial fibrillati on 859592822 Active 2021 Not Available [facility] 3 14:47:37 Irregular heart beat 733345668 Active 2021 Not Available [facility] 3 14:47:38 Screening for malignant neoplasm of prostate Active 2021 Not Available [facility] 3 14:47:38 Atrial fibrillati on 30157849 Active 2021 Not Available [facility] 3 14:47:38 Upper respirator y infection 00540662 Active 2021 Not Available [facility] 3 14:47:38 Hyperlipid emia 06125599 Active 2021 Not Available [facility] 3 14:47:38 Liver enzymes level above reference range 623303646 Active 2021 Not Available [facility] 3 14:47:38 Sleep apnea 91453386 Active 2021 Not Available [facility] 3 14:47:39 Obstructiv e sleep apnea syndrome 83205635 Active 2021 Not Available [facility] 3 14:47:39 COVID-19 828401944 Active 2022 GERTRUDIS Awad [address], [place], [address] , [employer] 3 17:40:13 Blood glucose outside reference range 242719975 Active 2022 GERTRUDIS Awad [address], [address], [place], [address] , [employer] 3 09:50:13 Sebaceous cyst of skin 615210069 Active 2022 GERTRUDIS Awad [address], [address], [place], [address] , [employer] 3 12:19:11 Impaired glucose tolerance 3901164 Active 2022 GERTRUDIS Awad [address], [address], [place], [address] , [employer] 3 12:20:45 Epidermoid cyst of skin 651481020 Active 2022 Prasanna mendez MD [address], [place], [address] , [employer] 3 14:17:10 Notes:COVID-19 pos 12/28/22 Problem Notes None recorded. Procedures Surgical History Date Name Laterality Status Provider Name and Address Organization Details Recorded Time 3 other completed Hanh Smith MA [facility] 07/17/2023 10:26:16 Hernia Repair completed Not Available [facility] 10/26/2022 14:44:56 Unlisted px accessory sinus completed Not Available [facility] 10/26/2022 14:44:56 Imaging Results Imaging Date Name Status LastModified by Organiz ation Details LastModified Time 06/01/2022 home sleep study completed [id number] [facility] ([facility]) [address] [facility] [address], [place], [address], 10/26/2022 14:51:18 09/02/2022 MAMMO, diagnostic, digital, unilateral completed [email or web address] [address], [place], [address], 01/22/2023 15:42:00 Procedure Notes None recorded. Medical Equipment None Reported. Allergies No known drug allergies Medications Name Sig Start Date Stop Date Status Note LastModified by Organization Details LastModified Time azithromyci n 250 mg tablet TAKE 2 TABLETS (500 MG) BY ORAL ROUTE ONCE DAILY FOR 1 DAY THEN 1 TABLET (250 MG) BY ORAL ROUTE ONCE DAILY FOR 4 DAYS active Not Available Not Available No t Available famotidine 40 mg tablet Take 1 tablet every day by oral route in the morning. 12/17 completed Not Available Not Available Not Available prednisone 20 mg tablet Take 2 tablets every day by oral route for 5 days. active Not Available Not Available No t Available oxycodone-a cetaminophe n 5 mg-325 mg tablet active Not Available Not Available No t Available omeprazole 10 mg capsule,del ayed release Take 2 capsules every day by oral route. 09/27 completed otc Not Available Not Available Not Available omeprazole 20 mg capsule,del ayed release Take 1 capsule by mouth daily. active Not Available Not Available No t Available methylpredn isolone 4 mg tablets in a dose pack FOLLOW PACKAGE DIRECTION S 09/24 completed Not Available Not Available Not Available rosuvastati n 10 mg tablet Take 1 tablet by mouth daily at bedtime. active Not Available Not Available No t Available cetirizine qd 2017 active Not Available Not Available Not Avai lable Xarelto 20 mg tablet TAKE 1 TABLET BY MOUTH EVERY DAY 12/24 completed Not Available Not Available Not Available Flowflex COVID-19 Antigen Home Test kit 01/18 completed Not Available Not Available Not Available Paxlovid 300 mg (150 mg x 2)-100 mg tablets in a dose pack FOLLOW PACKAGE DIRECTION S 01/18 completed Not Available Not Available Not Available Vitals Date Recorded Body mass index (BMI) Body height Oxygen saturation Oxygen saturation in Arterial blood by Pulse oximetry Heart rate Respiratory rate Body temperature Body weight Systolic blood pressure Diastolic blood pressure Provider Name and Address Organization Details Last Updated DateTime 3 36 kg/m2 177.8 cm 97 % 97 % 61 /min 16 /min 97.4 [degF] 604238. 68 g 128 mm[Hg] 82 mm[Hg] Not Available [facility] 3 14:45:32 Date Recorded Body height Body temperature Body mass index (BMI) Body weight Respiratory rate Oxygen saturation Oxygen saturation in Arterial blood by Pulse oximetry Heart rate Systolic blood pressure Diastolic blood pressure Provider Name and Address Organization Details Last Updated DateTime 3 177.8 cm 97.7 [degF] 35.2 kg/m2 265007. 13 g 16 /min 97 % 97 % 68 /min 122 mm[Hg] 80 mm[Hg] CHARISMA Martin [facility] 3 09:32:22 Date Recorded Body height Body temperature Body mass index (BMI) Body weight Respiratory rate Oxygen saturation Oxygen saturation in Arterial blood by Pulse oximetry Heart rate Systolic blood pressure Diastolic blood pressure Provider Name and Address Organization Details Last Updated DateTime 3 177.8 cm 98.1 [degF] 34.3 kg/m2 185439. 58 g 16 /min 97 % 97 % 69 /min 122 mm[Hg] 72 mm[Hg] CHARISMA Martin [facility] 3 12:01:42 Date Recorded Body height Body mass index (BMI) Body weight Body temperature Heart rate Oxygen saturation Oxygen saturation in Arterial blood by Pulse oximetry Systolic blood pressure Diastolic blood pressure Provider Name and Address Organization Details Last Updated DateTime 3 177.8 cm 34.3 kg/m2 066073. 58 g 98.2 [degF] 70 /min 98 % 98 % 120 mm[Hg] 70 mm[Hg] CHARISMA [facility] 3 11:24:55 Date Recorded Body height Body mass index (BMI) Body weight Body temperature Heart rate Oxygen saturation Oxygen saturation in Arterial blood by Pulse oximetry Systolic blood pressure Diastolic blood pressure Provider Name and Address Organization Details Last Updated DateTime 3 177.8 cm 34.3 kg/m2 624082. 58 g 98.1 [degF] 72 /min 99 % 99 % 122 mm[Hg] 72 mm[Hg] CHARISMA [facility] 3 11:47:15 Social History Question Answer Notes LastModified by Organizat ion Details LastModified Time Tobacco Smoking Status Never Smoker [employer] [facility] 06/27/2023 11:04:08 What Is Your Level Of Caffeine Consumption? None [id number] Information not available 10/26/2022 In The 14 Days Before Symptom Onset, Have You Had Close Contact With A Laboratory-confirm ed COVID-19 While That Case Was Ill? No Information n ot available 06/27/2023 In The 14 Days Before Symptom Onset, Have You Had Close Contact With A Person Who Is Under Investigation For COVID-19 While That Person Was Ill? No Information not available 06/27/2023 What Type Of Diet Are You Following? REGULAR [id number] Information not available 10/26/2022 Have There Been Any Changes To Your Family Or Social Situation? No Information no t available 06/27/2023 Do You Use Insect Repellent Routinely? No Information not available 06/27/2023 What Is Your Relationship Status? [id number] Information not available 10/26/2022 Do You Use Your Seat Belt Or Car Seat Routinely? Yes Information not available 06/27/2023 Do You Have Smoke And Carbon Monoxide Detectors In Your Home? Yes Information not available 06/27/2023 At What Age Did You Start Smoking Tobacco? 0 Information not available 06/27/2023 How Much Tobacco Do You Smoke? No [id number] Information not available 10/26/2022 Do You Use Sunscreen Routinely? Yes Information not available 06/27/2023 How Many Years Have You Smoked Tobacco? 0 Information not available 06/27/2023 Have You Recently Traveled Abroad? No Information not available 06/27/2023 Do You Have Any Dietary Restrictions? No Information not available 06/27/2023 Sex: Unknown Functional Status Question Answer Note LastModified by Organizat ion Details LastModified Time Do you use any illicit or recreational drugs? No Information not available 06/27/2023 Do you or have you ever used any other forms of tobacco or nicotine? No Information not available 06/27/2023 What is your level of alcohol consumption? Occasional [id number] Information not available 10/26/2022 Are you currently employed? 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 Moderate [id number] Information not available 10/26/2022 Mental Status None recorded. Family History Relationship Description Onset Age of this Age Resolved Age Notes LastModified by Organization Details LastModified Time Mother Malignant tumor of breast [id number] Not available 10/26/2022 14:44:57 Mother Cirrhosis of liver [id number] Not available 10/26/2022 14:44:57 Unspecified Relation History of heart disorder [id number] Not available 10/26/2022 14:44:57 Notes:family good health Medical History Condition Response BRONCHITIS Y LIVER DISEASE Y HEARTBURN / REFLUX Y Immunizations Vaccine Type Date Status Note Provider Nam e and Address Organization Details Recorded Time COVID-19, mRNA, LNP-S, PF, 30 mcg/0.3 mL dose 07/29/2021 completed Not Available [facility] 14:51:04 Past Encounters Encounter ID Performer Location Encounter Start Date Encounter Closed Date Diagnosis/Indication Diagnosis SNOMED-CT Code Diagnosis ICD10 Code Diagnosis Note [id number] GERTRUDIS Awad [facility] [place] [address] [place] [address] 12/03/2020 00:00:00 12/24/2020 21:21:11 [id number] GERTRUDIS Awad [facility] [place] [address] [place] [address] 09/27/2021 00:00:00 09/27/2021 12:51:51 [id number] Oneal Christensen MD [facility] [place] [address] [place] [address] 12/24/2021 00:00:00 12/24/2021 17:28:00 [id number] GERTRUDIS Awad [facility] [place] [address] [place] [address] 07/14/2022 00:00:00 07/27/2022 00:35:06 [id number] GERTRUDIS Awad [facility] [place] [address] [place] [address] 08/30/2022 00:00:00 09/25/2022 13:39:16 [id number] GERTRUDIS Awad [facility] [place] [address] [place] [address] 01/19/2023 09:27:56 01/19/2023 09:58:03 Adult health examination 920549634 Z00.01 well exam completed Gastroesop hageal reflux disease 771317836 K21.9 stable on PPI therapy Hyperlipidemia 16438233 E78.5 pt has elected diet changes to this point for tx. he will repeat labs in 1 month and see if there was enough improvemen t. if not, he agrees to tx. Obstructiv e sleep apnea syndrome 36380828 G47.33 stable on cpap therapy Liver enzy mes level above reference range 393562487 R74.01 liver enzymes are still elevated. fatty liver hx on u/s. following cmp. Paroxysmal atrial fibrillation 215533040 I48.0 stable. on xarelto 20mg daily. follows with cardiology Steatotic liver disease 575623278 K76.0 hx noted on u/s Blood gluc ose outside reference range 868527838 R73.09 5.8% a1c. continue diet modificati ons ,lowering carbs and adding exercise Long-term drug therapy 729298094 Z79.801 [id number] GERTRUDIS Awad [facility] Internal [facility] [place] [address] [place] [address] 06/12/2023 11:37:27 06/12/2023 12:27:49 Sebaceous cyst of skin 632167208 L72.3 refer to gen. surgery for excision Hyperlipidemia 39162914 E78.5 LDL 163, failed attempts to control with diet and exercise. start rosuvastat in 10mg qhs. repeat labs in august fasting. Impaired g lucose tolerance 2131396 R73.03 5.7%. following. Screening for malignant neoplasm of prostate 640910679 Z12.5 psa due in august Long-term drug therapy 368212367 Z79.899 cbc and tfts due in aug. [id number] Prasanna mendez MD [facility] General Surgery [address] [place] [address] 06/27/2023 11:04:01 06/27/2023 14:33:26 Epidermoid cyst of skin 967351195 L72.0 mid back [id number] Prasanna mendez MD [facility] General Surgery [address] [facility] [address] 07/18/2023 11:44:34 08/30/2023 15:33:23 Health Concerns Section Related Observation LastModified by Organization Detai ls LastModified Time None Recorded Concern Status LastModified by Organization Details LastModified Time None Recorded Advance Directives Directive None Recorded Payers Encounter Date Sequence Insurance Name Policy Number Policy Cardoso Covered Member ID Cardoso Member ID Guarantor Name 01/19/2023 1 [facility] [id number] Ole Bhakta Joreg [id number] Ole Patel 06/12/2023 1 [facility] [id number] Ole Bhakta Jorge [id number] Ole Bhakta Jorge 06/27/2023 1 [facility] [id number] Ole Bhakta Jorge [id number] Ole Bhakta Jorge 07/18/2023 1 [facility] [id number] Ole Patel [id number] Ole Patel Notes Date Note Type Note Provider Name and Address Organization Details Recorded Time 08/30/19 23 text/htm l Generic HPI TemplateReported bypatient.Location:L breast Quality:lump Severity:decreasing in size Duration:constant Onset/Timin08/21/22 Context:unknown Aggravating factors:pushing around on it made it sore Associated Symptoms:area itches at timesNotes:States it was sore at first but now that is better. Not Available [facility] 09/25/2022 13:39:16 01/20/20 23 text/htm l HyperlipidemiaReported bypatient.Duration:chronic Control:usually well controlled Compliance:compliant; compliant with diet; exercises Complications:no coronary artery disease; no peripheral artery disease; no cardiovascular diseaseObstructive Sleep Apnea F/UReported bypatient.Quality:no loud snoring; no gasping for air; no witnessed apnea; no hyponasal speech; no frequent breathing through the mouth Onset/Timing:chronic Duration:continuous Severity:does not limit daily activities; no frequent sore throats resulting in excess missed days from school / work per year; no difficulty getting going in the morning; no awakening in the middle of the night with sore throat Location:no enlarged tonsils; no nasal passage blockage; no throat pain; no feeling of tightness in throat; no dryness of mouth; no chest congestion Context:no lack of adequate sleep; no shift work; not currently taking medication to help sleep; no recent weight gain; no recent upper respiratory infection; no recent sick contacts; not worse with environmental exposure; not worse with seasonal allergen exposure; no hypertension; normal sleep hours Aggravating factors:not worse during an upper respiratory infection (a cold); not worse when allergies are active Associated Symptoms:no morning headache; no awakening at night short of breath; no sweating heavily at night; no excessive sleepiness during the day; no suddenly falling asleep during the day; no napping; no impaired work performace; no nasal congestionReflux/GERDReported bypatient.Severity:same Duration:present 5 or more years Onset/Timing:gone now Context:non-smoker; no drug/alcohol abuse; no drug alcohol withdrawal; not related to food/drink Alleviating Factors:medication Associated Symptoms:no frequent coughing; no feeling of fullness/mass in throat; no hoarseness; no food getting stuck; no belching/burping; no vomiting; not vomiting blood; no regurgitation; no shortness of breath; no chest pain; no heartburn; no difficulty swallowing; no pain when swallowing; no bad taste; no decreased appetite; no weight loss; no black/tarry stools; no fatigue; no throat pain Wellness GERTRUDIS Awad [address] [place] [address], [place], [address], [employer] 01/22/2023 18:21:59 06/12/20 text/htm l Generic HPI TemplateReported bypatient.Location:mid to the R side of back Quality:lump Severity:tender to the touch Duration:constant Onset/Timing:noticed it Monday Context:unknown Aggravating factors:movement makes it feel tightHyperlipidemiaReported bypatient.Duration:chronic Control:usually well controlled Compliance:compliant; compliant with diet; exercises Complications:no coronary artery disease; no peripheral artery disease; no cardiovascular disease Wellness GERTRUDIS Awad [address] [place] [address], [place], [address], [employer] 06/25/2023 22:42:17 06/27/20 text/htm l patient complains of lump on his back was told he had a cyst. First noticed that says few months ago. . Occasional discomfort. Denies drainage redness or fevers Prasanna maher MD [address] [place] [address], [place], [address], [employer] [facility] 06/27/2023 14:17:36 07/18/20 text/htm l no complaints Prasanna maher MD [address] [place] [address], [place], [address], [employer] [facility] 07/27/2023 13:32:12
--- OUTSIDE RECORDS SUMMARY | 2025-01-09 00:20 | XMS_ITS | Data Portability ---
Author Organization [facility] QUYNHLaura Flood Address 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 Plan of Treatment Reminders Order Date Submit Date Provider Last Modified By Organization Details Last Modified Time Details Appointments ANY 15 2024 01:30P M GERTRUDIS Awad Not available Not available Not available Lab CBC w/ auto diff 2024 025 [email or web address] [facility], [address] [facility], [facility], [place], [address], 12/23/2024 17:10:23 CMP, serum or plasma 2024 025 [email or web address] [facility], [address] [facility], [facility], [place], [address], 12/23/2024 17:10:23 HbA1c (hemoglob in A1c), blood 2024 025 [email or web address] [facility], [address] [facility], [facility], [place], [address], 12/23/2024 17:10:23 insulin, serum 2024 025 [email or web address] [facility], [address] [facility], [facility], [place], [address], 12/23/2024 17:10:23 testoster one, free + total, serum 2024 025 [email or web address] [facility], [address] [facility], [address], [place], [address], 12/23/2024 17:10:24 lipid panel, serum 2024 025 [email or web address] [facility], [address] [place] [address], [place], [address], 12/23/2024 17:10:23 PSA, total, serum or plasma 2024 025 [email or web address] [facility], [address] [place] [address], [place], [address], 12/23/2024 17:10:24 testoster one, free + total, serum 2023 025 [facility], [address] [place] [address], [place], [address], 11/12/2024 11:42:10 CBC w/ auto diff 2023 025 [email or web address] [facility], [address] [place] [address], [place], [address], 11/12/2024 11:40:58 CMP, serum or plasma 2023 025 [email or web address] [facility], [address] [place] [address], [place], [address], 11/12/2024 11:41:19 HbA1c (hemoglob in A1c), blood 2023 025 [email or web address] [facility], [address] [place] [address], [place], [address], 11/12/2024 11:41:40 insulin, serum 2023 025 [email or web address] [facility], [address] [place] [address], [place], [address], 11/12/2024 11:41:51 lipid panel, serum 2023 025 [email or web address] [facility], [address] [facility] [address], [place], [address], 11/12/2024 11:41:29 PSA, total, serum or plasma 2023 025 [email or web address] [facility], [address] [facility] [address], [place], [address], 11/12/2024 11:42:00 testoster one, free + total, serum 2023 024 [email or web address] [facility], [address] [facility] [address], [place], [address], 07/12/2024 07:59:31 vitamin B12 + folate, serum or blood 2023 024 [facility], [address] [place] [address], [place], [address], 07/12/2024 07:59:31 TSH + free T4, serum 2023 024 [email or web address] [facility], [address] [place] [address], [place], [address], 07/12/2024 07:59:30 HbA1c (hemoglob in A1c), blood 2023 024 [email or web address] [facility], [address] [place] [address], [place], [address], 07/12/2024 07:59:30 insulin, serum 2023 024 [email or web address] [facility], [address] [place] [address], [place], [address], 07/12/2024 07:59:30 CBC w/ auto diff 2023 024 [email or web address] [facility], [address] [place] [address], [place], [address], 07/12/2024 07:59:30 CMP, serum or plasma 2023 024 [email or web address] [facility], [address] [facility], [address], [place], [address], 07/12/2024 07:59:30 lipid panel, serum 2023 024 [facility], [address] [facility], [address], [place], [address], 07/12/2024 07:59:30 Referral None recorded. Procedures colonosco py screening (PROC) 2024 025 [email or web address] [facility], [address], [address], [place], [address], 11/11/2024 16:22:33 Surgeries None recorded. Imaging US, liver [email or web address] [facility], [address], [address], [place], [address], 12/09/2024 09:59:21 XR, chest, 2 view 2023 024 [facility], [address], [address], [place], [address], 12/13/2023 14:07:52 Medication Orders omeprazol e 20 mg capsule,d elayed release 2023 024 [email or web address], [address] [place] [address], [address], 05/10/2024 09:14:14 Patient TargetsNo targets recorded. Patient Instructions Encounter Date Encounter Id Patient Instructions Last Modified By Organization Details Last Modified Time 05/10/2024 [id number] A healthy lifestyle: care instructions Not available 05/10/2024 09:14:12 11/11/2024 [id number] A healthy lifestyle: care instructions Not available 11/11/2024 16:21:26 Reason for Referral None Reported. Results Created Date Observation Date Name Description Value Unit Range Abnormal Flag Note LastModifiedBy Organization Detail LastModifiedTime 12/13/19 24 12/13/2023 XR, chest , 2 view No observ ation record ed. [email or web address] [facility] [address], [place], [address], 12/25/2023 16:49:48 Result Notes None recorded. Problems Name Problem SNOMED Code Status Onset Date Resolution Date Notes Provider Name and Address Organization Details Recorded Time Gastroesoph ageal reflux disease 028052658 Active 2023 Dayami Coleman null, [place] - [facility] 4 14:38:36 Hyperlipide micaela 20304408 Active 2023 [place] [facility] 4 14:38:43 Atrial fibrillatio n 73305992 Active 2023 Day[place] [facility] 4 08:51:49 Obstructive sleep apnea syndrome 55311040 Active 2023 [place] [facility] 4 08:53:28 Body mass index 30+ - obesity 910153511 Active 2023 Wanda Chapman [place] null, [place] [facility] 4 08:56:40 Obesity 835403720 Active 2023 GERTRUDIS Awad Attn: [employer],[address] [place], [address], [place] [facility] 4 18:11:05 Steatotic liver disease 124517432 Active 2023 GERTRUDIS Awad Attn: Accountin g,[address] [place], [address], [place] - [facility] 4 18:11:36 Acid reflux 937779974 Active 2023 GERTRUDIS Awad Attn: Accountin g,[address] [place], [address], [place] [facility] 4 18:11:37 Male hypogonadis m 87367760 Active 2023 GERTRUDIS Awad Attn: Accountin g,[address] [facility], [place], [address], [facility] 4 18:11:40 Blood glucose outside reference range 167091405 Active 2023 GERTRUDIS Awad Attn: Accountin g,[address] [facility], [place], [address], [facility] 4 18:11:43 Long-term drug therapy Active 2024 GERTRUDIS Awad Attn: Accountin g,[address] [facility], [place], [address], [facility] 5 22:29:43 Positive screening for depression on PHQ-9 (Patient Health Questionnai re 9) 2272644349736 00 Active 2024 GERTRUDIS Awad Attn: Accountin g,[address] [facility], [place], [address], [facility] 5 22:30:09 Problem Notes None recorded. Procedures Surgical History None recorded. Imaging Results Imaging Date Name Status LastModified by Organiz ation Details LastModified Time 12/13/2023 XR, chest, 2 view completed [facility] [address], [place], [address], 12/25/2023 16:49:48 Procedure Notes None recorded. Medical Equipment None Reported. Allergies No known drug allergies Medications Name Sig Start Date Stop Date Status Note LastModified by Organization Details LastModified Time omeprazole 20 mg capsule,del ayed release one tab po daily 2023 active Not Available Not Available Not Avai lable amoxicillin 875 mg-potassiu m clavulanate 125 mg tablet Take 1 tablet every 12 hours by oral route. 05/10 completed Not Available Not Available Not Available rosuvastati n 10 mg tablet TAKE 1 TABLET DAILY AT BEDTIME active Not Available Not Available No t Available Zyrtec 10 mg capsule Take 1 capsule every day by oral route. active Not Available Not Available No t Available Flowflex COVID-19 Antigen Home Test kit 11/08 completed Not Available Not Available Not Available Paxlovid 300 mg (150 mg x 2)-100 mg tablets in a dose pack FOLLOW PACKAGE DIRECTION S 11/08 completed Not Available Not Available Not Available Vitals Date Recorded Body weight Heart rate Respiratory rate Oxygen saturation Oxygen saturation in Arterial blood by Pulse oximetry Body mass index (BMI) Body height Systolic blood pressure Diastolic blood pressure Provider Name and Address Organization Details Last Updated DateTime 4 828764. 78 g 61 /min 16 /min 97 % 97 % 35.7 kg/m2 177.8 cm 127 mm[Hg] 85 mm[Hg] Dayami Coleman [facility] 4 08:45:55 Date Recorded Systolic blood pressure Diastolic blood pressure Provider Name and Address Organization Details Last Updated DateTime 11/10/2023 120 mm[Hg] 80 mm[Hg] GERTRUDIS Awad Attn: Accounting,[address] [place], [address], [facility] 11/10/2023 09:17:25 Date Recorded Body height Body mass index (BMI) Body weight Respiratory rate Oxygen saturation Oxygen saturation in Arterial blood by Pulse oximetry Heart rate Systolic blood pressure Diastolic blood pressure Provider Name and Address Organization Details Last Updated DateTime 4 177.8 cm 32.4 kg/m2 067282. 02 g 18 /min 97 % 97 % 60 /min 122 mm[Hg] 82 mm[Hg] Wanda Chapman MA [facility] 4 08:50:46 Date Recorded Body height Body mass index (BMI) Body weight Oxygen saturation Oxygen saturation in Arterial blood by Pulse oximetry Systolic blood pressure Diastolic blood pressure Provider Name and Address Organization Details Last Updated DateTime 5 177.8 cm 34.7 kg/m2 917853. 35 g 97 % 97 % 110 mm[Hg] 72 mm[Hg] Wanda Chapman MA [facility] 5 15:56:15 Date Recorded Respiratory rate Heart rate Oxygen saturation Oxygen saturation in Arterial blood by Pulse oximetry Systolic blood pressure Diastolic blood pressure Provider Name and Address Organization Details Last Updated DateTime 5 16 /min 59 /min 98 % 98 % 108 mm[Hg] 72 mm[Hg] GERTRUDIS Awad Attn: Uma barriga,[address] [facility], [place], [address], [facility] 16:19:59 Social History Question Answer Notes LastModified by Organizat ion Details LastModified Time Tobacco Smoking Status Never Smoker Dayami Coleman null, [facility] 11/10/2023 08:49:42 Do You Have An Advance Directive? Yes [email or web address] Information n ot available 11/10/2023 Are You Blind Or Do You Have Difficulty Seeing? No [email or web address] Information n ot available 11/10/2023 What Is Your Level Of Caffeine Consumption? Moderate [email or web address] Information not available 11/10/2023 In The 14 Days Before Symptom Onset, Have You Had Close Contact With A Laboratory-confirm ed COVID-19 While That Case Was Ill? No Information n ot available 11/10/2023 In The 14 Days Before Symptom Onset, Have You Had Close Contact With A Person Who Is Under Investigation For COVID-19 While That Person Was Ill? No [email or web address] Information not available 11/10/2023 Have You Been To An Area Known To Be High Risk For COVID-19? No [email or web address] Information not available 11/10/2023 Are You Deaf Or Do You Have Serious Difficulty Hearing? No [email or web address] Information not available 11/10/2023 What Type Of Diet Are You Following? REGULAR [email or web address] Information n ot available 11/10/2023 Are There Any Guns Present In Your Home? Yes Information not available 11/10/2023 What Was The Date Of Your Most Recent Tobacco Screening? 11/10/2023 [email or web address] Information not available 11/10/2023 What Is Your Relationship Status? [email or web address] Information not available 11/10/2023 Do You Use Your Seat Belt Or Car Seat Routinely? Yes [email or web address] Information not available 11/10/2023 Do You Have Smoke And Carbon Monoxide Detectors In Your Home? Yes [email or web address] Information not available 11/10/2023 Do You Use Sunscreen Routinely? Yes Information not available 11/10/2023 Has Tobacco Cessation Counseling Been Provided? No [email or web address] Information not available 05/10/2024 Sex: Unknown Functional Status Question Answer Note LastModified by Organizat ion Details LastModified Time Do you use any illicit or recreational drugs? No [email or web address] Information not available 11/10/2023 Do you or have you ever used any other forms of tobacco or nicotine? No [email or web address] Information not available 11/10/2023 What is your level of alcohol consumption? Occasional [email or web address] Information not available 11/10/2023 Are you currently employed? Yes Information not available 11/10/2023 Are you able to care for yourself? Yes [email or web address] Information n ot available 11/10/2023 What is your exercise level? Occasional [email or web address] Information not available 11/10/2023 Mental Status None recorded. Family History Relationship Description Onset Age of this Age Resolved Age Notes LastModified by Organization Details LastModified Time Mother Malignant tumor of breast [email or web address] Not available 11/09 08:49:07 Notes:no change Medical History Condition Response Acid Reflux (GERD) Y High Cholesterol Y Immunizations Vaccine Type Date Status Note Provider Nam e and Address Organization Details Recorded Time MMR 3 completed Wanda [place], [place] [facility] 11/08/2024 10:31:37 MMR 0 completed Wanda [place] [facility] 11/08/2024 10:31:37 COVID-19, mRNA, LNP-S, PF, 30 mcg/0.3 mL dose 1 completed Wanda [place] [facility] 11/08/2024 10:31:37 COVID-19, mRNA, LNP-S, PF, 30 mcg/0.3 mL dose 1 completed Wanda [place] [facility] 11/08/2024 10:31:37 COVID-19, mRNA, LNP-S, PF, 30 mcg/0.3 mL dose 1 completed Wanda [place] [facility] 11/08/2024 10:31:37 DTP 0 completed Wanda [place] [facility] 11/08/2024 10:31:37 DTP 1 completed W[place] [facility] 11/08/2024 10:31:37 DTP 4 completed W[place] [facility] 11/08/2024 10:31:37 DTP 9 completed W[place] [facility] 11/08/2024 10:31:37 DTP 9 completed Takdeya [place] [facility] 11/08/2024 10:31:37 OPV 0 completed W[place] [facility] 11/08/2024 10:31:37 OPV 1 completed Wanda [place] [facility] 11/08/2024 10:31:37 OPV 4 completed Wanda Chapman [place] [facility] 11/08/2024 10:31:37 OPV 9 completed Wanda [place] [facility] 11/08/2024 10:31:37 OPV 9 completed Wanda [place] [facility] 11/08/2024 10:31:37 Td (adult), 2 Lf tetanus toxoid, preservative free, adsorbed 3 completed Wanda Chapman [place] [facility] 11/08/2024 10:31:37 Past Encounters Encounter ID Performer Location Encounter Start Date Encounter Closed Date Diagnosis/Indication Diagnosis SNOMED-CT Code Diagnosis ICD10 Code Diagnosis Note [id number] Oneal Christensen MD [facility] [address] [place] [address] 11/10/2023 08:37:22 11/10/2023 09:24:44 Hyperlipidemia 30507013 E78.5 stable on crestor 10mg daily and repeat labs are due in February. Acid reflux 385063740 K2 1.9 stable on omeprazole 20mg daily. Atrial fibrillation 4943 6004 I48.91 hx of infrequent , brief, a-fib, has seen cardiology in the past and CHADS scoring did not warrant anticoagul ation. Obstructiv e sleep apnea syndrome 59783313 G47.33 on cpap therapy and doing well. Long-term drug therapy 173353853 Z79.899 routine cbc and cmp due in february. Thyroid di sorder screening 186621920 Z13.29 repeat TFTs in february. Blood gluc ose outside reference range 924602001 R73.09 hx of IGT. due for a1c and insulin in february. Screening procedure 2012 5006 Z13.9 screening CXR for some sensation that he cannot get a full breath at times . Endocrine/ metabolic screening 222640102 Z13.228 screening testostero ne, b12 and folate labs ordered for february. [id number] Oneal Christensen MD [facility] [address] [place] [address] 05/10/2024 08:42:32 05/10/2024 09:26:51 Body mass index 30+ - obesity 982380216 Z68.32 BMI is 32.4 Obesity 559810802 E66.8 discussed healthy diet, exercise, controllin g carbohydra alize and added sugars in the diet Hyperlipidemia 62984109 E78.5 stable on crestor 10mg daily check repeat fasting lipids in August Acid reflux 605127183 K2 1.9 stable on omeprazole 20mg daily. Refill given Blood gluc ose outside reference range 617254035 R73.09 hx of IGT. due for a1c and insulin in february. Check updated labs in August Atrial fibrillation 4943 6004 I48.91 hx of infrequent , brief, a-fib, has seen cardiology in the past and CHADS scoring did not warrant anticoagul ation. Obstructiv e sleep apnea syndrome 55320974 G47.33 on cpap therapy and doing well. Long-term drug therapy 026030018 Z79.899 Routine CBC and CMP due in August Adult th examination 525988804 Z00.01 Annual wellness exam completed and summer labs reviewed and we will call for results Screening for malignant neoplasm of prostate 946827621 Z12.5 Annual PSA will be due in August Male hypogonadism 624511 06 E29.1 Patient has a history of hypogonadi sm and updated testostero ne labs will be ordered for February as well Steatotic liver disease K76.0 Check updated ultrasound of the liver to evaluate his fatty liver status after diet and exercise modificati ons [id number] Oneal Christensen MD [facility]y Lal [address] [place] [address] 11/11/2024 15:47:01 11/11/2024 16:49:23 Body mass index 30+ - obesity 304847558 Z68.34 BMI is 34.7 Obesity 411557841 E66.9 discussed healthy diet, exercise, controllin g carbohydra alize and added sugars in the diet Atrial fibrillation 4943 6004 I48.91 hx of infrequent , brief, a-fib, has seen cardiology in the past and CHADS scoring did not warrant anticoagul ation. Hyperlipidemia 78141125 E78.5 stable on crestor 10mg daily due for fasting lipid panel Blood gluc ose outside reference range 111331256 R73.09 hx of IGT. due for a1c and insulin Acid reflux 555240344 K2 1.9 stable on omeprazole 20mg daily. Refill given Steatotic liver disease 012033757 K76.0 History noted Obstructiv e sleep apnea syndrome 98723866 G47.33 on cpap therapy and doing well. Male hypogonadism 392281 06 E29.1 Patient has a history of hypogonadi sm and updated testostero ne labs will be ordered Long-term drug therapy 479172277 Z79.899 Routine CBC and CMP Screening for malignant neoplasm of prostate 085891769 Z12.5 Annual PSA is due Screening for malignant neoplasm of colon 082432765 Z12.11 Patient is due for baseline screening colonoscop y orders given Positive s creening for depression on PHQ-9 (Patient Health Questionnaire 9) 0039066252 [address]6340 Z13.31 Patient scored a 7 on screening today and is feeling overall very stable with no acute concerns Health Concerns Section Related Observation LastModified by Organization Detai ls LastModified Time None Recorded Concern Status LastModified by Organization Details LastModified Time None Recorded Advance Directives Directive Y: Payers Encounter Date Sequence Insurance Name Policy Number Policy Cardoso Covered Member ID Cardoso Member ID Guarantor Name 11/10/2023 1 [facility] [id number] Ole Patel [id number] Ole Patel 05/10/2024 1 [facility] [id number] Ole Patel [id number] Ole Patel 11/11/2024 1 [facility] [id number] Ole Patel [id number] Ole Patel Notes Date Note Type Note Provider Name and Address Organization Details Recorded Time 024 text/ht ml HyperlipidemiaReported bypatient.Duration:chronic Control:usually well controlled Compliance:compliant; compliant with diet; exercises Complications:no coronary artery disease; no peripheral artery disease; no cardiovascular diseaseObstructive Sleep Apnea F/UReported bypatient.Quality:no loud snoring; no gasping for air; no witnessed apnea; no hyponasal speech; no frequent breathing through the mouth; improving Onset/Timing:chronic Duration:continuous Severity:does not limit daily activities; [...] allergen exposure; no hypertension; normal sleep hours Alleviating factors:relief with CPAP Aggravating factors:not worse during an upper respiratory infection (a cold); not worse when allergies are active Associated Symptoms:no morning headache; no awakening at night short of breath; no sweating heavily at night; no excessive sleepiness during the day; no suddenly falling asleep during the day; no napping; no impaired work performace; no nasal congestionReflux/GERDReported bypatient.SymptomsAsymptomatic; no difficulty swallowing; no pain swallowing; no postprandial pain Severity:same Duration:present 5 or more years Onset/Timing:gone now Context:non-smoker; no drug/alcohol abuse; no drug alcohol withdrawal;related to any meal;related to stress Alleviating Factors:medication Associated Symptoms:no frequent coughing; no feeling of fullness/mass in throat; no hoarseness; no food getting stuck; no belching/burping; no nausea; no vomiting; not vomiting blood; no regurgitation; no shortness of breath; no chest pain; no heartburn; no difficulty swallowing; no pain when swallowing; no bad taste; no decreased appetite; no weight loss; no black/tarry stools; no fatigue; no throat pain GERTRUDIS Awad Attn: Accounting, [address] [place], [address], [facility] 11/10/2023 19:02:25 024 text/ht ml Atrial FibrillationReported bypatient.Notes:Patient has history of atrial fibrillation that is stable in regular rhythm and not anticoagulated and he does follow with cardiology routinelyHyperlipidemiaReported bypatient.Duration:chronic Control:usually well controlled Compliance:compliant; compliant with diet; exercises Complications:no coronary artery disease; no peripheral artery disease; no cardiovascular diseaseObstructive Sleep Apnea F/UReported bypatient.Quality:no loud snoring; no gasping for air; no witnessed apnea; no hyponasal speech; no frequent breathing through the mouth; improving Onset/Timing:chronic Duration:continuous Severity:does not limit daily activities; [...] allergen exposure; no hypertension; normal sleep hours Alleviating factors:relief with CPAP Aggravating factors:not worse during an upper respiratory infection (a cold); not worse when allergies are active Associated Symptoms:no morning headache; no awakening at night short of breath; no sweating heavily at night; no excessive sleepiness during the day; no suddenly falling asleep during the day; no napping; no impaired work performace; no nasal congestionReflux/GERDReported bypatient.SymptomsAsymptomatic; no difficulty swallowing; no pain swallowing; no postprandial pain Severity:same Duration:present 5 or more years Onset/Timing:gone now Context:non-smoker; no drug/alcohol abuse; no drug alcohol withdrawal;related to any meal;related to stress Alleviating Factors:medication Associated Symptoms:no frequent coughing; no feeling of fullness/mass in throat; no hoarseness; no food getting stuck; no belching/burping; no nausea; no vomiting; not vomiting blood; no regurgitation; no shortness of breath; no chest pain; no heartburn; no difficulty swallowing; no pain when swallowing; no bad taste; no decreased appetite; no weight loss; no black/tarry stools; no fatigue; no throat pain Patient has history of prediabetes with increased glucose levels GERTRUDIS Awad Attn: Accounting, [address] [place], [address], [facility] 05/26/2024 18:12:33 025 text/ht ml Atrial FibrillationReported bypatient.Notes:Patient has history of atrial fibrillation that is stable in regular rhythm and not anticoagulated and he does follow with cardiology routinelyHyperlipidemiaReported bypatient.Duration:chronic Control:usually well controlled Compliance:compliant; compliant with diet; exercises Complications:no coronary artery disease; no peripheral artery disease; no cardiovascular diseaseObstructive Sleep Apnea F/UReported bypatient.Quality:no loud snoring; no gasping for air; no witnessed apnea; no hyponasal speech; no frequent breathing through the mouth; improving Onset/Timing:chronic Duration:continuous Severity:does not limit daily activities; [...] allergen exposure; no hypertension; normal sleep hours Alleviating factors:relief with CPAP Aggravating factors:not worse during an upper respiratory infection (a cold); not worse when allergies are active Associated Symptoms:no morning headache; no awakening at night short of breath; no sweating heavily at night; no excessive sleepiness during the day; no suddenly falling asleep during the day; no napping; no impaired work performace; no nasal congestionReflux/GERDReported bypatient.SymptomsAsymptomatic; no difficulty swallowing; no pain swallowing; no postprandial pain Severity:same Duration:present 5 or more years Onset/Timing:gone now Context:non-smoker; no drug/alcohol abuse; no drug alcohol withdrawal;related to any meal;related to stress Alleviating Factors:medication Associated Symptoms:no frequent coughing; no feeling of fullness/mass in throat; no hoarseness; no food getting stuck; no belching/burping; no nausea; no vomiting; not vomiting blood; no regurgitation; no shortness of breath; no chest pain; no heartburn; no difficulty swallowing; no pain when swallowing; no bad taste; no decreased appetite; no weight loss; no black/tarry stools; no fatigue; no throat pain Patient has history of prediabetes with increased glucose levels GERTRUDIS Awad Attn: Accounting, [address] [place], [address], [facility] - [facility] 11/26/2024 22:30:28
--- OUTSIDE RECORDS SUMMARY | 2025-01-09 00:20 | XMS_ITS | Referral Summary ---
Author Organization [facility] Address [address] [place] [address] Care Team Providers Care Glove Brusher Name Role Phone Aminata Holder Primary Care Pr ovider Allergies No known active allergies Medications cetirizine (ZyrTEC) 10 mg tablet Take by mouth Active omeprazole (PriLOSEC) 20 mg capsule 11/21/2021 Active rosuvastatin (CRESTOR) 10 mg tablet Active Active Problems Problem Noted Date Diagnosed Date SANGITA (obstructive sleep apnea) 07/04/2022 Hypercholesterolemia 12/13/2021 PAF (paroxysmal atrial fibrillation) 11/04/2021 Other chest pain 11/04/2021 Social History Tobacco Use Types Packs/Day Years Used Date Smoking Tobacco: Never Smokeless Tobacco: Never Tobacco Cessation:Counseling Given: Not Answered AUDIT-C Answer Date Recorded Q1: How often do you have a drink containing alc ohol? 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 Gender Identity Not on file Sexual Orientation Not on file Last Filed Vital Signs Vital Sign Reading Time Taken Comments Blood Pressure 102/70 05/20/2024 8:39 AM CDT Pulse 62 05/20/2024 8:39 AM CDT Temperature 36.5 C (97.7 F) 06/26/2019 8:27 AM CDT Respiratory Rate 18 05/26/2023 10:2 8 AM CDT Oxygen Saturation 97% 05/20/2024 8:39 AM CDT Inhaled Oxygen Concentration - - Weight 103.1 kg (227 lb 6.4 oz) 05/20/2024 8:39 AM CDT Height 177.8 cm (5' 10 ) 05/20/2024 8:39 AM CDT Body Mass Index 32.63 05/20/2024 8:39 AM CDT Plan of Treatment Not on file Insurance [facility] CHOICE PLUS [facility] PPO [facility] HMO/PPO Address: [address] [place] [address] [facility] HMO [facility] CHOICE PLUS Care Teams Glove Brusher Relationship Specialty Start Date End Date Aminata Holder PA PCP - General Physician [employer] 09/27/21
--- OUTSIDE RECORDS SUMMARY | 2025-01-09 00:20 | XMS_ITS | Clinical Summary ---
Author Organization [facility] Address [address] [place] [address] Care Team Providers Care Photo Stylist Name Role Phone Oneal Christensen MD Primary Care Provider [phone] Source Comments [facility],non-owned Affiliates and Associated Physician Practices is amultiple site organization consisting of ambulatory clinics and hospital sitesin [place], [place], [place] and [place]. This disclosure is being madepursuant to the Care Everywhere program and may not contain all information available regarding this patient. Last updated 18.[facility] Allergies No known active allergies Medications * Be aware that medications may not be up to date on this document. Alwaysverify current medications with the patient. Cetirizine HCl (ZYRTEC PO) Active OMEPRAZOLE PO Active Active Problems No known active problems Social History Tobacco Use Types Packs/Day Years Used Date Smoking Tobacco: Never Smokeless Tobacco: Never Sex and Gender Information Value Date Recorded Sex Assigned at Not on file Legal Sex Male 5:34 AM C[employer] OFF [employer] Gender Identity Not on file Sexual Orientation Not on file Last Filed Vital Signs Vital Sign Reading Time Taken Comments Blood Pressure 120/74 10/17/2019 6:24 PM [employer] Pulse 83 10/17/2019 6:24 PM [employer] Temperature 37.1 C (98.8 F) 10/17/2019 6:24 PM [employer] Respiratory Rate 16 08/31/2017 10:43 AM C[employer] Oxygen Saturation 98% 10/17/2019 6:24 PM [employer] Inhaled Oxygen Concentration - - Weight 104.3 kg (230 lb) 10/17/2019 6:24 PM [employer] Height 177.8 cm (5' 10 ) 10/17/2019 6:24 PM [employer] Body Mass Index 33 10/17/2019 6:24 PM [employer] Plan of Treatment Health Maintenance Due Date Last Done Comments COLOGUARD (AGES 45-75) - COL ON CA SCREENING 1979 COLON MONITORING 1979 COLONOSCOPY - COLON CA SCREENING 1979 CT COLONOGRAPHY - COLON CA SCREENING 1979 Colorectal Cancer Screening 1979 FIT - COLON CA SCREENING 1979 FLEX SIG - COLON CA SCREENING 1979 LIPID TESTING 1979 HIV SCREENING 1994 HEPATITIS C SCREENING 02/22/1997 DTAP/TDAP/TD VACCINES (1 - Tdap) 1998 HEPATITIS B VACCINE (1 of 3 - 19+ 3-dose series) 1998 SCREENING FOR DIABETES 10/17/2019 COVID-19 VACCINE (1 - 2023-2 5 season) 2024 DEPRESSION SCREENING 08/28/2024 INFLUENZA VACCINE (Season Ended) 2025 ZOSTER VACCINE (1 of 2) 2029 HIB VACCINE Aged Out No longer eligi ble based on patient's age to complete this topic HPV VACCINE Aged Out No longer eligi ble based on patient's age to complete this topic MENINGOCOCCAL (Group B) VACC INE SHARED DECISION-MAKING Aged Out No longer eligibl e based on patient's age to complete this topic MENINGOCOCCAL GROUPS A/C/Y/W VACCINE Aged Out No longer eligible b ased on patient's age to complete this topic PNEUMOCOCCAL VACCINE Aged Out No long er eligible based on patient's age to complete this topic Insurance [employer] Care Teams Photo Stylist Relationship Specialty Start Date End Date Oneal Christensen MD PCP - General Internal Medicine 09/01/16
--- OUTSIDE RECORDS SUMMARY | 2025-01-09 00:20 | XMS_ITS | Clinical Summary ---
Author Organization [facility] Address [address] [place] [address] Care Team Providers Care Development Mgr Name Role Phone MarybelmarielAminata Primary Care Pr ovider Allergies No known active allergies Medications cetirizine (ZyrTEC) 10 mg tablet Take by mouth Active omeprazole (PriLOSEC) 20 mg capsule 11/21/2021 Active rosuvastatin (CRESTOR) 10 mg tablet Active Active Problems Problem Noted Date Diagnosed Date SANGITA (obstructive sleep apnea) 07/04/2022 Hypercholesterolemia 12/13/2021 PAF (paroxysmal atrial fibrillation) 11/04/2021 Other chest pain 11/04/2021 Surgical History Surgery Date Site/Laterality Comments INGUINAL HERNIA REPAIR Inguinal Hernia Repair - (Added by TW Conv) HERNIA REPAIR Medical History Medical History Date Comments Atrial fibrillation (HCC) GERD (gastroesophageal reflux disease) Family History Medical History Relation Name Comments Breast cancer Mother Cirrhosis Mother Relation Name Status Comments Mother Social History Tobacco Use Types Packs/Day Years [...] on file 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 Gender Identity Not on file Sexual Orientation Not on file Obstetrics History Last Filed Vital Signs Vital Sign Reading [...] 05/20/2024 8:39 AM CDT Plan of Treatment Health Maintenance Due Date Last Done Comments Colon Cancer Screening-Colonoscopy 1979 Depression Screening 1979 Hepatitis C Screening 1979 DTaP/Tdap/Td Vaccine (6 - Tdap) 04/01/1993 03/31/1993, 03/30/1984, 09/13/1980, Additional history exists Hepatitis B Screening 1997 Regular Well Visit/Exam 18-64 1997 Covid-19 Vaccine ( season) 2024 07/29/2021, 11/17/2020, 10/29/2020 Influenza Vaccine (#1) 2024 HPV Vaccines Aged Out No longer eligi ble based on patient's age to complete this topic Pneumococcal vaccine <65 Aged Out No longer eligible based on patient's age to complete this topic Insurance [facility] CHOICE [facility]US [facility] PPO [facility] HMO [facility] CHOICE PLUS Care Teams Development Mgr Relationship Specialty Start Date End Date Aminata Holder PA PCP - General Physician Supervisor [place] 09/27/21
[2025-01-09 11:27] VITALS: BP 131/92; PULSE 73; RESP 19; TEMP 36.2; O2SAT 97
[2025-01-09] MEDS: LACTATED RINGERS 1,000 ML 150 ML IV CONT (11:35)
--- NOTE | 2025-01-09 11:36 | WPDANESEPPF ---
Anes - Initial Pre Proc Eval Procedure: Operation Date: 01/09/25 12:30 Proposed Procedures p Screening Colonoscopy - Darryl Heredia MD Date/Time: 01/09/25 11:36 Surgeon: Darryl Heredia MD Pre Op Diagnosis: Encounter for screening for malignant neoplasm of Patient Data Age: 44 Gender: M Height: 1.78 m Weight: 109.7 kg Last Vital Signs Temp 36.2 C L 01/09/25 11:27 Pulse 73 01/09/25 11:27 Resp 19 01/09/25 11:27 BP 131/92 H 01/09/25 11:27 Pulse Ox 97 01/09/25 11:27 O2 Del Method Room Air 01/09/25 11:27 Allergies Allergy/AdvReac Type Severity Reaction Status Date / Time PEACHES AdvReac Unknown Unknown Uncoded 12/31/24 14:52 Home Medications Medication Instructions Recorded Confirmed Type albuterol sulfate 90 mcg/actuation 2 puff inhalation .Q4 hours PRN 11/06/19 12/31/24 Rx aerosol inhaler (Ventolin HFA) cough #18 grams cetirizine 10 mg capsule (Zyrtec) 10 mg PO DAILY 11/06/19 01/09/25 History omeprazole 10 mg capsule,delayed 10 mg PO DAILY 11/06/19 01/09/25 History release rosuvastatin 10 mg tablet 10 mg PO DAILY 12/31/24 01/09/25 History Patient hx anesthesia problems: none Family hx anesthesia problems: none Results Review: All pre-operative results and documents have been reviewed as part of the pre-operative evaluation. [facility] Past Medical History Medical History Obstructive sleep apnea Fatty liver Hyperlipidemia Atrial fibrillation Allergies History of gastroesophageal reflux (GERD) Surgical History Surgical History History of sinus surgery H/O hernia repair Family History Family History Mother Breast cancer Cirrhosis Social History Social History Smoking status: Never smoker Alcohol intake: never Substance use: never Substance use type: does not use Living arrangements: with family Gender identity (if verbalized by the patient): Male Spiritual care concerns: No Anes - Eval Final PreProcedure Day of Procedure 01/09/25 11:36 Patient weight: obese Heart: regular rate and rhythm Lungs: clear to auscultation Airway: Mallampati scale class II Neurological: alert and oriented Last oral intake: >/= 8 hours ASA classification: III Emergent: no Anesthetic plan: proceed Anesthesia type and monitoring: general GIVS and standard monitoring Results Review: All pre-operative results and documents have been reviewed as part of the pre-operative evaluation. Informed Consent: The patient's anesthetic plan and its attendant risks and benefits were discussed with the patient/family/POA. Questions were solicited and answers provided to the satisfaction of the patient/family/POA.
--- NOTE | 2025-01-09 12:07 | PM.HPGS ---
History of Present Illness History of Present Illness Consent: Risks, benefits, and alternatives have been discussed and questions answered. Patient agrees to proceed with procedure. Chief complaint: Encounter for screening for malignant neoplasm of Narrative: Ole Patel is a 44 year old male here for first screening colonoscopy Review of Systems Review of Systems: All systems reviewed & are unremarkable except as noted in HPI and below PMFSH Past Medical History Medical History (Updated 01/09/25 @ 12:07 by Darryl Heredia MD) Colon cancer screening Obstructive sleep apnea Fatty liver Hyperlipidemia Atrial fibrillation Allergies History of gastroesophageal reflux (GERD) Surgical History Surgical History History of sinus surgery H/O hernia repair Family History Family History Mother Breast cancer Cirrhosis Social History Social History Smoking status: Never smoker Alcohol intake: never Substance use: never Substance use type: does not use Living arrangements: with family Gender identity (if verbalized by the patient): Male Spiritual care concerns: No Meds Home Medications and Allergies Home Medications Medication Instructions Recorded Confirmed Type albuterol sulfate 90 mcg/actuation 2 puff inhalation .Q4 hours PRN 11/06/19 12/31/24 Rx aerosol inhaler (Ventolin HFA) cough #18 grams cetirizine 10 mg capsule (Zyrtec) 10 mg PO DAILY 11/06/19 01/09/25 History omeprazole 10 mg capsule,delayed 10 mg PO DAILY 11/06/19 01/09/25 History release rosuvastatin 10 mg tablet 10 mg PO DAILY 12/31/24 01/09/25 History Allergies Allergy/AdvReac Type Severity Reaction Status Date / Time PEACHES AdvReac Unknown Unknown Uncoded 12/31/24 14:52 Vital Signs Vital Signs - 24 hr 01/09/25 11:27 Temperature 97.2 F L Pulse Rate 73 Respiratory Rate 19 Blood Pressure 131/92 H Pulse Oximetry 97 Oxygen Delivery Room Air Exam Const: General: comfortable and no acute distress HENMT: Face/Nose/Sinus: Normal nares present Eyes: General: appearance normal, both eyes and all related structures Neck: Neck: no JVD Resp: Auscultation: clear to auscultation bilaterally Cardio: Rate: regular rate Rhythm: regular rhythm GI: Inspection: non-distended GI Palp: Yes Soft to palpation Skin: General skin exam: normal color Neuro: General: gait normal Speech: normal speech Extrem: General: normal to inspection Psych: Mental Status: mental status grossly normal Assessment and Plan Assessment and plan (1) Colon cancer screening: Code(s): Z12.11 - Encounter for screening for malignant neoplasm of colon Status: Acute Assessment and Plan: colonoscopy
[2025-01-09 12:17] VITALS: BP 108/71; PULSE 66; RESP 23; O2SAT 98
[2025-01-09 12:27] VITALS: BP 115/85; PULSE 68; RESP 25; O2SAT 98
[2025-01-09 12:34] VITALS: BP 108/69; PULSE 65; RESP 23; O2SAT 100
== END 2025-01-09 12:44 | disposition home or self-care (01) ==
PROVIDERS: PCP Physician Assistant; Referring Provider Physician Assistant; Visit Provider Internal Medicine Gastroenterology
PROC: 0DJD8ZZ Inspection of Lower Intestinal Tract, Via Natural or Artificial Opening Endoscopic (ICD-10-PCS; CPT 45378; principal; 2025-01-09 12:30)
DX: Z12.11 Encounter for screening for malignant neoplasm of colon (principal); K64.8 Other hemorrhoids; E66.9 Obesity, unspecified; Z68.34 Body mass index [BMI] 34.0-34.9, adult
CPT/HCPCS: 45378; J2704; J7120